=== PATIENT | male | born 1955 | race Caucasian/White ===

== ENCOUNTER → 2020-10-14 07:24 | Outpatient (BNVA) | payer OTHER, SELFPAY | PROVIDERS: PCP Obstetrics & Gynecology; Visit Provider Internal Medicine Endocrinology, Diabetes & Metabolism | DX: E11.65 Type 2 diabetes mellitus with hyperglycemia (principal); E11.42 Type 2 diabetes mellitus with diabetic polyneuropathy; Z79.4 Long term (current) use of insulin; I10 Essential (primary) hypertension; E78.5 Hyperlipidemia, unspecified; E55.9 Vitamin D deficiency, unspecified; E66.9 Obesity, unspecified | CPT/HCPCS: 82947; 99212 ==

== ENCOUNTER 2020-10-14 08:10 | Outpatient (REF) | payer OTHER, SELFPAY ==
[2020-10-14 10:36] LABS: Hematocrit 44.8 % (42-52); Hemoglobin 14.9 g/dl (14.0-18.0)
[2020-10-14 11:22] LABS: Alanine Aminotransferase 24 U/L (0-40); Alkaline Phosphatase 54 U/L (39-117); Anion Gap 14 (12-20); Aspartate Amino Transferase 18 U/L (5-37); Bilirubin Total 0.4 mg/dL (0.0-1.0); Blood Urea Nitrogen 20 mg/dL (9-16); Calcium 9.4 mg/dL (8.4-10.2); Carbon Dioxide 28 mmol/L (22-29); Chloride 101 mmol/L (96-108); Cholesterol 154 mg/dL; Estimated Glomerular Filt Rate > 60; Glucose Fasting 168 mg/dL (60-99); HDL Cholesterol 38 mg/dL; LDL Cholesterol Calculated 83 mg/dl; Potassium 4.4 mmol/L (3.3-5.1); Sodium 139 mmol/L (135-145); Triglycerides 166 mg/dL
[2020-10-14 11:30] LABS: Vitamin D 25-OH Total 18.9 ng/mL (>30)
[2020-10-14 11:55] LABS: Vitamin B12 384 pg/mL (200-900)
[2020-10-15 03:57] LABS: LDL Cholesterol Direct 100 mg/dL (<100)
== END 2020-10-14 08:11 | disposition home or self-care (01) ==
LOC: HO.10HDL 08:10
PROVIDERS: Visit Provider Internal Medicine Endocrinology, Diabetes & Metabolism
DX: E11.65 Type 2 diabetes mellitus with hyperglycemia (principal)
CPT/HCPCS: 36415; 80053; 80061; 82306; 82607; 83721; 85014; 85018

== ENCOUNTER 2022-07-28 22:05 | Emergency (ER) | payer MEDICARE, MEDICAID, SELFPAY ==
[2022-07-28 22:11] VITALS: BP 177/81; PULSE 58; RESP 18; TEMP 36.4; O2SAT 96; BMI 33.9
[2022-07-28 22:50] LABS: Appearance Urine Clear; Color Urine Yellow; Glucose Urine UA >=1000 mg/dL (Negative); Leukocyte Esterase Urine Negative (Negative); Nitrite Urine Negative (Negative); PH 5.5 (5.0-9.0); Specific Gravity - Urine >= 1.030 (1.005-1.025); UMIC TRIGGER UACC YES; Urine Blood Moderate (2+) (Negative); Urine Ketones Negative (Negative); Urine Protein Negative (Neg-Trace)
[2022-07-28 22:53] LABS: Bacteria Urine None Seen (None Seen); Hyaline Casts Urine 0-2 /LPF (0-2); RBC Urine >20 /HPF (0-2); Squamous Epithelial Cell Urine 0-2 /HPF (0-2); WBC Urine 0-5 /HPF (0-5)
[2022-07-29 00:06] LABS: MANUAL DIFF FLAG NO
[2022-07-29 00:29] VITALS: BP 123/59; PULSE 58; RESP 16; TEMP 36.8; O2SAT 94
[2022-07-29 00:33] LABS: Basophils Absolute Auto 0.1 X10*3/uL (0.0-0.2); Basophils Percent Auto 0.7 % (0-2); Eosinophils Absolute Auto 0.2 X10*3/uL (0.0-0.4); Eosinophils Percent Auto 2.6 % (0-4); Hematocrit 41.2 % (42.0-52.0); Hemoglobin 13.8 g/dl (14.0-18.0); Imm Gran Abs Auto 0.01 X10*3/uL (0.00-0.03); Imm Gran Pct Auto 0.1 % (0.0-0.4); Lymphocytes Absolute Auto 1.6 X10*3/uL (1.2-4.9); Lymphocytes Percent Auto 23.7 % (20-40); Mean Corpuscular HGB Conc 33.5 g/dl (31.0-36.0); Mean Corpuscular Hemoglobin 31.2 pg (27.0-33.0); Mean Platelet Volume 10.5 fL (9.4-12.4); Monocytes Absolute Auto 0.8 X10*3/uL (0.1-1.2); Monocytes Percent Auto 11.1 % (2-11); Neutrophils Absolute Auto 4.2 x10*3/uL (2.0-8.3); Neutrophils Percent Auto 61.8 % (45-73); Platelet Count 199 X10*3/uL (160-400); Red Blood Count 4.43 X10*6/uL (4.60-5.80); Red Cell Distribution Width 13.6 % (11.0-16.0); White Blood Count 6.8 X10*3/uL (4.8-10.8)
[2022-07-29 00:42] LABS: Alanine Aminotransferase 27 U/L (0-40); Albumin Level 3.8 g/dL (3.5-5.0); Alkaline Phosphatase 89 U/L (39-117); Anion Gap 14 (12-20); Aspartate Amino Transferase 23 U/L (5-37); Bilirubin Total 0.3 mg/dL (0.0-1.0); Blood Urea Nitrogen 22 mg/dL (9-16); Calcium 9.6 mg/dL (8.4-10.2); Carbon Dioxide 25 mmol/L (22-29); Chloride 105 mmol/L (96-108); Creatinine Clr Calc Pharmacy 92.5; Estimated Glomerular Filt Rate > 60; Glucose Random 242 mg/dL (60-115); Potassium 3.8 mmol/L (3.3-5.1); Sodium 140 mmol/L (135-145); Total Protein 6.6 g/dL (6.5-8.0)
--- NOTE | 2022-07-29 00:45 | ED_ITS ---
HPI - Male Genitourinary General Chief complaint: Abdominal Pain Stated complaint: blood in urine Time Seen by Provider: 07/28/22 23:51 Source: patient and family Mode of arrival: ambulatory History of Present Illness HPI Narrative: 67-year-old male presents with complaints of hematuria that he sees at the end of his voiding and states that this has been going on for over a week and his primary care provider has already set him up with a Urology and ultrasound evaluation August 18. Patient denies any unexplained weight loss, fever, chills, pain on urination but does report some mild lower abdominal discomfort and otherwise denies any back discomfort. Patient denies use of anticoagulation and only takes an aspirin a day. Related Data Home Medications Medication Instructions Recorded Confirmed aspirin 81 mg tablet,delayed 81 mg PO DAILY 10/14/20 10/14/20 release fluoxetine 20 mg capsule 20 mg PO DAILY 10/14/20 10/14/20 hydrochlorothiazide 25 mg tablet 25 mg PO DAILY 10/14/20 10/14/20 metoprolol tartrate 100 mg tablet 100 mg PO BID 10/14/20 10/14/20 omeprazole 20 mg capsule,delayed 20 mg PO DAILY 10/14/20 10/14/20 release Previous Rx's Medication Instructions Recorded blood sugar diagnostic (FreeStyle #100 ea 10/14/20 Lite Strips) cholecalciferol (vitamin D3) 50 50 mcg PO DAILY 30 days #30 caps 10/14/20 mcg (2,000 unit) capsule dulaglutide 3 mg/0.5 mL 3 mg (0.5 mL) subcut QWEEK 30 days 10/14/20 subcutaneous pen injector #2.5 mL (Trulicity) empagliflozin 25 mg tablet 25 mg PO DAILY 30 days #30 tabs 10/14/20 (Jardiance) insulin glargine U-300 conc 300 50 unit (0.1667 mL) subcut DAILY 10/14/20 unit/mL (3 mL) subcutaneous pen 30 days #6 mL (Toujeo Max U-300 SoloStar) lancets 28 gauge (FreeStyle #100 ea 10/14/20 Lancets) lisinopril 20 mg tablet 20 mg PO DAILY 30 days #30 tabs 10/14/20 pen needle, diabetic 32 gauge x #50 ea 10/14/20 (BD Shaina 2nd Gen Pen Needle) simvastatin 40 mg tablet 40 mg PO BEDTIME 30 days #30 tabs 10/14/20 Allergies Allergy/AdvReac Type Severity Reaction Status Date / Time No Known Allergies Allergy Verified 07/28/22 22:21 Review of Systems Review of Systems: Pertinent positives and negatives as stated in HPI 10 point review of systems otherwise negative. 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 GENERAL: Well developed, well nourished, in no acute distress. HEAD: Normocephalic/atraumatic EYES: PERRLA, EOMI EARS: Ext canals without abnormality OROPHARYNX: no oral lesions noted, posterior pharynx clear LUNGS: Normal breath sounds. No adventitious sounds or accessory muscle use. SpO2<94> CARDIOVASCULAR: Regular rate and rhythm without noted murmurs ABDOMEN: Soft, non-tender, non-distended with bowel sounds. MUSCULOSKELETAL: No tenderness, deformities, or effusions noted on gross inspection. EXTREMITIES: No cyanosis, clubbing or edema. SKIN: Inspection of the skin reveals no rashes NEUROLOGIC: Alert and oriented x 4. Strength and sensation to light touch were grossly intact x 4. Course Course Course Narrative: 67-year-old male with history and clinical presentation suggestive of prostatic hematuria. Patient denies any difficulty with initiation of urinating or dribbling at the and but simply states that his voiding and is with bleeding. He denies any passage of clots and review of lab work otherwise demonstrates stable hemoglobin, chronically stable chemistries and a urinalysis which demonstrates the presence of blood with greater than 20 RBCs per high field. Postvoid residuals were obtained with prevoid-103, and postvoid -17. Patient has good follow-up, is not on anticoagulation, and is not currently passing clots nor is he in acute urinary retention. Patient is otherwise hemodynamically stable a be discharged home with instructions to use [id number] Tylenol for any discomfort, keep his appointment on August 18, and strict return precautions for any difficulty with urination or clots. Medical Decision Making Lab Data Result Diagrams: 07/29/22 00:01 07/29/22 00:01 Labs: Lab Results 07/28/22 07/29/22 07/29/22 Range/Units 22:42 00:01 00:01 WBC 6.8 (4.8-10.8) X10*3/uL RBC 4.43 L (4.60-5.80) X10*6/uL Hgb 13.8 L (14.0-18.0) g/dl Hct 41.2 L (42.0-52.0) % MCV 93.0 (80.0-98.0) fL MCH 31.2 (27.0-33.0) pg MCHC 33.5 (31.0-36.0) g/dl RDW 13.6 (11.0-16.0) % Plt Count 199 (160-400) X10*3/uL MPV 10.5 (9.4-12.4) fL Immature Gran % (Auto) 0.1 (0.0-0.4) % Neut % (Auto) 61.8 (45-73) % Lymph % (Auto) 23.7 (20-40) % [place] % (Auto) 11.1 H (2-11) % Eos % (Auto) 2.6 (0-4) % Baso % (Auto) 0.7 (0-2) % Lymph # (Auto) 1.6 (1.2-4.9) X10*3/uL [place] # (Auto) 0.8 (0.1-1.2) X10*3/uL Eos # (Auto) 0.2 (0.0-0.4) X10*3/uL Baso # (Auto) 0.1 (0.0-0.2) X10*3/uL Abs Immat Gran (auto) 0.01 (0.00-0.03) X10*3/uL Absolute Neuts (auto) 4.2 (2.0-8.3) x10*3/uL Absolute Nucleated RBC 0.000 (0.0-0.012) X10*3/uL Nucleated RBC % (auto) 0.0 (0.0-0.2) /100WBC Sodium 140 (135-145) mmol/L Potassium 3.8 (3.3-5.1) mmol/L Chloride 105 (96-108) mmol/L Carbon Dioxide 25 (22-29) mmol/L Anion Gap 14 (12-20) BUN 22 H (9-16) mg/dL Creatinine 1.05 (0.5-1.4) mg/dL Estim Creat Clear Calc 92.5 Estimated GFR > 60 Random Glucose 242 H (60-115) mg/dL Calcium 9.6 (8.4-10.2) mg/dL Total Bilirubin 0.3 (0.0-1.0) mg/dL AST 23 (5-37) U/L ALT 27 (0-40) U/L Alkaline Phosphatase 89 (39-117) U/L Total Protein 6.6 (6.5-8.0) g/dL Albumin 3.8 (3.5-5.0) g/dL Urine Color Yellow Urine Appearance Clear Urine pH 5.5 (5.0-9.0) Ur Specific [place] >= 1.030 H (1.005-1.025) Urine Protein Negative (Neg-Trace) mg/dL Urine Glucose (UA) >=1000 H (Negative) mg/dL Urine Ketones Negative (Negative) mg/dL Urine Blood Moderate (2+) H (Negative) Urine Nitrite Negative (Negative) Ur Leukocyte Esterase Negative (Negative) Urine RBC >20 H (0-2) /HPF Urine WBC 0-5 (0-5) /HPF Ur Squamous Epith Cells 0-2 (0-2) /HPF Urine Bacteria None Seen (None Seen) Hyaline Casts 0-2 (0-2) /LPF Discharge Plan Discharge Clinical Impression: Hematuria Patient Disposition: Home, Self-Care Instructions: Hematuria (ED) Additional Instructions: 1. Resume all home medications as prescribed. 2. Keep your urology appointment on August 18 as scheduled. 3. Do not hesitate to return to the emergency room if you began developing clots or the bleeding does not stop, or you are unable to pass urine. Prescriptions: No Action cholecalciferol (vitamin D3) 50 mcg (2,000 unit) capsule 50 mcg PO DAILY 30 Days Qty: 30 6RF fluoxetine 20 mg capsule 20 mg PO DAILY omeprazole 20 mg capsule,delayed release(DR/EC) 20 mg PO DAILY aspirin 81 mg tablet,delayed release (DR/EC) 81 mg PO DAILY metoprolol tartrate 100 mg tablet 100 mg PO BID hydrochlorothiazide 25 mg tablet 25 mg PO DAILY Jardiance 25 mg tablet 25 mg PO DAILY 30 Days Qty: 30 5RF Toujeo Max U-300 SoloStar 300 unit/mL (3 mL) insulin pen 50 unit subcut DAILY 30 Days Qty: 6 5RF (DME) pen needle, diabetic [BD Shaina 2nd Gen Pen Needle] 32 gauge x 5/32 needle See Rx Instructions .MEDSUPPLY Qty: 50 4RF Rx Instructions: once a day Trulicity 3 mg/0.5 mL pen injector 3 mg subcut QWEEK 30 Days Qty: 2.5 6RF Rx Instructions: Dose increased (DME) FreeStyle Lite Strips Strip See Rx Instructions .MEDSUPPLY Qty: 100 6RF Rx Instructions: 3 times a day (DME) lancets [FreeStyle Lancets] 28 gauge misc See Rx Instructions .MEDSUPPLY Qty: 100 6RF Rx Instructions: 3 times a day lisinopril 20 mg tablet 20 mg PO DAILY 30 Days Qty: 30 6RF simvastatin 40 mg tablet 40 mg PO BEDTIME 30 Days Qty: 30 6RF Referrals: Mike Zhang MD [Primary Care Provider] - Herson Yeh MD [Physician] -
--- NOTE | 2022-07-29 01:02 | PC.NURSE ---
bladder scan completed 103ml reading. Dr Chang notified. per MD pt should try to urinate. pt ambulated to bathroom independently. pt able to produce urinate. per MD perform additional bladder scan. this rn performed bladder scan at this time. bladder scan showed 17ml in bladder at this time. notified. no new orders at this time
== END 2022-07-29 01:19 | disposition home or self-care (01) ==
PROVIDERS: Emergency Provider Student in an Organized Health Care Education/Training Program; PCP Internal Medicine
DX: R31.9 Hematuria, unspecified (principal); R10.30 Lower abdominal pain, unspecified
CPT/HCPCS: 36415; 51798; 80053; 81001; 85025; 99284

== ENCOUNTER 2022-08-03 13:40 | Outpatient (REF) | payer MEDICARE, MEDICAID, SELFPAY | END 2022-08-03 13:41 | disposition home or self-care (01) | LOC: HO.US 13:40 | PROVIDERS: Absent Provider Internal Medicine; Visit Provider Internal Medicine | DX: R31.0 Gross hematuria (principal) | CPT/HCPCS: 76775 ==

== ENCOUNTER 2022-08-30 10:46 | Outpatient (REF) | payer MEDICARE, MEDICAID, SELFPAY ==
[2022-08-30 16:32] LABS: Urine Cytology See Pathology rpt
== END 2022-08-30 10:47 | disposition home or self-care (01) ==
LOC: HO.LAB 10:46
PROVIDERS: PCP Internal Medicine; Visit Provider Nurse Practitioner Family
DX: R31.0 Gross hematuria (principal); R39.15 Urgency of urination; Z79.4 Long term (current) use of insulin; Z79.899 Other long term (current) drug therapy
CPT/HCPCS: 36415; 82565; 84520; 88112; 99202

== ENCOUNTER 2022-08-30 11:44 | Outpatient (REF) | payer MEDICARE, MEDICAID, SELFPAY ==
[2022-08-30 14:40] LABS: Blood Urea Nitrogen 21 mg/dL (9-16); Estimated Glomerular Filt Rate > 60
== END 2022-08-30 11:45 | disposition home or self-care (01) ==
LOC: HO.10HDL 11:44
PROVIDERS: Visit Provider Nurse Practitioner Family
DX: Z13.89 Encounter for screening for other disorder (principal)
CPT/HCPCS: 36415; 82565; 84520

== ENCOUNTER 2022-09-13 15:09 | Outpatient (REF) | payer OTHER, SELFPAY ==
--- NOTE | ~2022-09-13 | CT_ITS ---
EXAMINATION: CT abdomen pelvis wo/w IV con CLINICAL INFORMATION: Reason for Exam R31.0 - Gross hematuria COMPARISON: No prior CT available for comparison. TECHNIQUE: Multidetector volumetric imaging was performed from the superior aspect of the liver through the pubic symphysis . Study initially done without contrast, subsequently 85 mL of Omnipaque 350 injected Sagittal and coronal reformatted images were obtained on the technologist's workstation. This CT examination was performed using dose optimization techniques as appropriate, variously including the following: *Automated exposure control *Adjustment of mA and/or kV according to patient size (this includes techniques or standardized protocols for targeted exams where dose is matched to indication/reason for exam; i.e. extremities or head) *Use of iterative reconstruction technique DLP: 1358 mGy-cm FINDINGS: LOWER THORAX: There is elevation of left hemidiaphragm. Included lung bases are clear. HEPATOBILIARY: No focal hepatic lesions. No biliary ductal dilatation. GALLBLADDER: Gallbladder unremarkable. SPLEEN: Spleen is normal in size. PANCREAS: No focal mass or ductal dilatation. STOMACH AND GASTROINTESTINAL TRACT: Stomach is grossly unremarkable. There is diverticulosis of the descending and sigmoid colon without evidence of acute diverticulitis. No CT evidence of appendicitis. ADRENALS: No adrenal nodules. KIDNEYS/URETERS: No hydronephrosis, stones or solid mass lesions. URINARY BLADDER: Partially decompressed. PELVIC VISCERA: Unremarkable PERITONEUM: No free air or fluid. LYMPH NODES: No lymphadenopathy. VASCULAR:Abdominal aorta normal in size, no aneurysm found. BONES, ABDOMINAL WALL AND SOFT TISSUES: There are sclerotic bone densities in the vertebral body of L1 L2 L3 and L4, these may represent bone islands, cannot entirely rule out the possibility of sclerotic metastasis such as from prostate CA. CT/CT abdomen pelvis wo/w IV con IMPRESSION: * No CT evidence of kidney stones or hydronephrosis. No CT explanation for patient's hematuria. * Diverticulosis without evidence of acute diverticulitis. * There are sclerotic bone densities in the vertebral bodies of L1, L2, L3 and L4, these may represent bone islands, cannot entirely rule out the possibility of sclerotic metastasis such as from prostate CA. Correlation with patient's clinical history, laboratory data PSA, if clinically indicated follow-up bone scan could be helpful. * Elevation of left hemidiaphragm.
[2022-09-13] MEDS: iohexoL 350 MG/ML 100 ML INFUS..BTL IV (15:54)
== END 2022-09-13 15:10 | disposition home or self-care (01) ==
LOC: HO.CT 15:09
PROVIDERS: PCP Internal Medicine; Visit Provider Nurse Practitioner Family
DX: R31.0 Gross hematuria (principal)
CPT/HCPCS: 74178; Q9967

== ENCOUNTER 2022-09-18 11:15 | Outpatient (REF) | payer OTHER, SELFPAY ==
[2022-09-18 12:51] LABS: Prostate Specific Antigen 1.22 ng/mL (<0.05-4.0)
== END 2022-09-18 11:16 | disposition home or self-care (01) ==
LOC: HO.LAB 11:15
PROVIDERS: PCP Internal Medicine; Visit Provider Nurse Practitioner Family
DX: Z12.5 Encounter for screening for malignant neoplasm of prostate (principal); N40.0 Benign prostatic hyperplasia without lower urinary tract symptoms
CPT/HCPCS: 36415; 84153

== ENCOUNTER → 2022-09-27 13:29 | Outpatient (BNVA) | payer OTHER, SELFPAY | PROVIDERS: PCP Internal Medicine; Visit Provider Urology | DX: R31.0 Gross hematuria (principal); N40.0 Benign prostatic hyperplasia without lower urinary tract symptoms; M85.00 Fibrous dysplasia (monostotic), unspecified site | CPT/HCPCS: 52000; 99212 ==

== ENCOUNTER 2023-12-19 09:47 | Outpatient (REF) | payer OTHER, SELFPAY ==
[2023-12-19 12:05] LABS: Alanine Aminotransferase 25 U/L (0-40); Alkaline Phosphatase 74 U/L (39-117); Anion Gap 15 (12-20); Aspartate Amino Transferase 21 U/L (5-37); Bilirubin Total 0.4 mg/dL (0.0-1.0); Blood Urea Nitrogen 21 mg/dL (9-16); Calcium 10.1 mg/dL (8.4-10.2); Carbon Dioxide 29 mmol/L (22-29); Chloride 104 mmol/L (96-108); Cholesterol 135 mg/dL (<200); Creatinine Urine 160.76 mg/dL; Estimated Glomerular Filt Rate > 60; Glucose Random 155 mg/dL (60-115); HDL Cholesterol 35 mg/dL (>40); LDL Cholesterol Calculated 73 mg/dL (<100); Microalbum/Creatinine Ratio Ur 4.3 ug/mg cr (<30); Potassium 4.5 mmol/L (3.3-5.1); Sodium 143 mmol/L (135-145); Total Protein 7.6 g/dL (6.5-8.0); Triglycerides 137 mg/dL (<150)
== END 2023-12-19 09:48 | disposition home or self-care (01) ==
LOC: HO.HHCL 09:47
PROVIDERS: Visit Provider Internal Medicine
DX: E78.2 Mixed hyperlipidemia (principal); R31.0 Gross hematuria; E11.9 Type 2 diabetes mellitus without complications; Z79.4 Long term (current) use of insulin; Z12.5 Encounter for screening for malignant neoplasm of prostate
CPT/HCPCS: 36415; 80053; 80061; 82043; 82570; 84153

== ENCOUNTER 2025-01-15 10:06 | Outpatient (REF) | payer MEDICARE, SELFPAY ==
[2025-01-15 11:32] LABS: MANUAL DIFF FLAG NO
[2025-01-15 11:51] LABS: Basophils Percent Auto 0.6 % (0-2); Eosinophils Absolute Auto 0.1 X10*3/uL (0.0-0.4); Eosinophils Percent Auto 1.8 % (0-4); Hematocrit 44.6 % (42.0-52.0); Hemoglobin 14.7 g/dl (14.0-18.0); Imm Gran Abs Auto 0.02 X10*3/uL (0.00-0.03); Imm Gran Pct Auto 0.3 % (0.0-0.4); Lymphocytes Absolute Auto 1.8 X10*3/uL (1.2-4.9); Lymphocytes Percent Auto 29.2 % (20-40); Mean Corpuscular Hemoglobin 30.2 pg (27.0-33.0); Mean Corpuscular Volume 91.6 fL (80.0-98.0); Mean Platelet Volume 10.5 fL (9.4-12.4); Monocytes Absolute Auto 0.6 X10*3/uL (0.1-1.2); Monocytes Percent Auto 9.6 % (2-11); Neutrophils Absolute Auto 3.7 x10*3/uL (2.0-8.3); Neutrophils Percent Auto 58.5 % (45-73); Platelet Count 201 X10*3/uL (160-400); Red Blood Count 4.87 X10*6/uL (4.60-5.80); Red Cell Distribution Width 14.2 % (11.0-16.0); White Blood Count 6.2 X10*3/uL (4.8-10.8)
[2025-01-15 12:19] LABS: Creatinine Urine 122.92 mg/dL; Microalbum/Creatinine Ratio Ur 13.8 ug/mg cr (<30)
[2025-01-15 12:27] LABS: Alanine Aminotransferase 26 U/L (0-40); Alkaline Phosphatase 67 U/L (39-117); Anion Gap 9 (12-20); Aspartate Amino Transferase 23 U/L (5-37); Bilirubin Total 0.5 mg/dL (0.0-1.0); Blood Urea Nitrogen 18 mg/dL (9-16); Carbon Dioxide 33 mmol/L (22-29); Chloride 103 mmol/L (96-108); Cholesterol 129 mg/dL (<200); Estimated Glomerular Filt Rate > 60; Glucose Random 156 mg/dL (60-115); HDL Cholesterol 38 mg/dL (>40); LDL Cholesterol Calculated 71 mg/dL (<100); Potassium 4.4 mmol/L (3.3-5.1); Sodium 141 mmol/L (135-145); Total Protein 6.9 g/dL (6.5-8.0); Triglycerides 102 mg/dL (<150)
[2025-01-15 12:31] LABS: Prostate Specific Antigen Scr 2.53 ng/mL (<0.05-4.0)
== END 2025-01-15 10:07 | disposition home or self-care (01) ==
LOC: HO.HHCL 10:06
PROVIDERS: Visit Provider Internal Medicine
DX: Z00.00 Encounter for general adult medical examination without abnormal findings (principal); Z79.4 Long term (current) use of insulin; E11.9 Type 2 diabetes mellitus without complications; E78.2 Mixed hyperlipidemia; K62.5 Hemorrhage of anus and rectum; Z12.5 Encounter for screening for malignant neoplasm of prostate
CPT/HCPCS: 36415; 80053; 80061; 82043; 82570; 84153; 85025